=== PATIENT | female | born 1955 | race Native Hawaiian/Other Pacific Islander ===

== ENCOUNTER 2017-01-10 14:29 | Emergency (ER) | payer OTHER ==
[~2017-01-10] VITALS: Ht 160 cm; Wt 79.4 kg
[2017-01-10 14:40] VITALS: TEMP 97.5
[2017-01-10] MEDS ORDERED: GABA300C2 PO (14:56)
[2017-01-10] MEDS ORDERED: ONDA4TAB3 PO (14:57)
[2017-01-10] MEDS ORDERED: LIPITOR40 MG PO (14:58)
[2017-01-10] MEDS ORDERED: CLARITIN10 MG PO (14:58)
[2017-01-10] MEDS ORDERED: LORTAB 7.5-3251 TAB PO (14:59)
[2017-01-10] MEDS ORDERED: TRAZ50TA36 PO (15:00)
[2017-01-10] MEDS ORDERED: METFTAB PO (15:00)
[2017-01-10] MEDS ORDERED: AMOX500T5 PO (15:01)
[2017-01-10] MEDS ORDERED: CLARITHROMYC500 M1 OR (15:03)
[2017-01-10] MEDS ORDERED: FLUOXETINE40 MG PO (15:04)
[2017-01-10] MEDS ORDERED: OMEPRAZOLE20 M1 OR (15:04)
[2017-01-10] MEDS ORDERED: EQ LANSOPRAZOLE15 MG OR (15:05)
[2017-01-10 15:26] LABS: PLATELET COUNT 382 K/uL (152-353)
[2017-01-10 15:32] LABS: SODIUM 134 mmol/L (136-145)
[2017-01-10 20:36] VITALS: BP 136/62
== END 2017-01-10 20:34 | disposition home or self-care (01) ==
LOC: ED 14:29
DX: K52.89 Other specified noninfective gastroenteritis and colitis (principal)
CPT/HCPCS: 80053; 82150; 85027; 86318; 96374; 96375; 99283; J2405